=== PATIENT | female | born 1950 | race Caucasian/White ===

== ENCOUNTER 2018-07-01 16:37 | Emergency (ER) | payer MEDICAID, OTHER ==
[2018-07-01] MEDS ORDERED: Sodium Chloride 0.9% 2.5 ML Syringe FLUSH PRN (16:39)
[2018-07-01] MEDS ORDERED: Sodium Chloride 0.9% 10 ML Syringe FLUSH PRN (16:39)
--- NOTE | 2018-07-01 16:39 | EDM.PDOC ---
ED HPI GENERAL MEDICAL PROBLEM - General Stated Complaint: AMB Time Seen by Provider: 07/01/18 16:38 Source of Information: Reports: Patient, Family History Limitations: Reports: No Limitations - History of Present Illness INITIAL COMMENTS - FREE TEXT/NARRATIVE: History of present illness: []Patient Arrived to ED by EMS as a stroke code. Noted to be incontinent. Patient's granddaughter gives a history of yesterday she was feeling unwell complaints and then about an hour and half prior to arrival she told her that she was feeling worse and thought she had a recurrence of a UTI and was going to lay down. She then went into the bathroom and started dry heaving complaining that she could not open her eyes because she was so dizzy and then proceeded to pass out. Her daughter carried her back to the bedroom and later in the bed where she vomited 3-4 more times yellow fluid. Patient has a history of lupus, diabetes, frequent UTIs, CVA in the past, COPD, and is oxygen dependent at night. Review of systems: As per history of present illness and below otherwise all systems reviewed and negative. Past medical history: As per history of present illness and as reviewed below otherwise noncontributory. Surgical history: As per history of present illness and as reviewed below otherwise noncontributory. Social history: No reported history of drug or alcohol abuse. Family history: As per history of present illness and as reviewed below otherwise noncontributory. Physical exam: General: Well developed, well nourished in NAD HEENT: Atraumatic, normocephalic, pupils reactive, negative for conjunctival pallor or scleral icterus, mucous membranes moist, throat clear, neck supple, nontender, trachea midline. Lungs: Clear to auscultation, breath sounds equal bilaterally, chest nontender. Heart: S1S2, regular, negative for clicks, rubs, or JVD. Abdomen: NABS, Soft, nondistended, nontender. Negative for masses or hepatosplenomegaly. Negative for costovertebral tenderness. Pelvis: Stable nontender. Genitourinary: Deferred. Rectal: Deferred. Extremities: Atraumatic, negative for cords or calf pain. Neurovascular unremarkable. Neuro: Awake, alert,. Cranial nerves II through XII unremarkable. Cerebellum unremarkable. Motor and sensory unremarkable throughout. Exam nonfocal. Skin:warm and dry Diagnostics: CT was negative, CBC is elevated at 17,000 with a shift, chemistries negative, TSH normal, UA positive for UTI. Lactate negative Therapeutics: Patient was hydrated while in the ED with marked improvement in mental status ED Course: Improved Impression: UTI Prescriptions: Cipro, Reglan Plan: Increase fluids take meds as directed follow-up with primary care return if symptoms worsen or change. Definitive disposition and diagnosis as appropriate pending reevaluation and review of above. head Pain Score (Numeric/FACES): 3 - Related Data Allergies Allergy/AdvReac Type Severity Reaction Status Date / Time amoxicillin [From Augmentin] Allergy Other Verified 07/01/18 17:04 azithromycin Allergy Lethargy Verified 06/09/18 19:29 clavulanic acid Allergy Other Verified 07/01/18 17:04 [From Augmentin] Home Meds: Home Meds Clopidogrel [Plavix] 75 mg PO BEDTIME 04/11/18 [History] Escitalopram [Lexapro] 10 mg PO BEDTIME 04/11/18 [History] L.acidoph,Paracasei, B.lactis [Probiotic] 1 cap PO DAILY 04/11/18 [History] Magnesium Citrate 295 ml PO ONETIME #1 solution 04/11/18 [Rx] Omeprazole Magnesium [Prilosec] 20 mg PO DAILY #30 suspdr.pkt 04/11/18 [Rx] Pantoprazole [ProTONIX] 40 mg PO DAILY 04/11/18 [History] Pregabalin [Lyrica] 50 mg PO BEDTIME 04/11/18 [History] Tiotropium [Spiriva HandiHaler] 18 mcg INH DAILY 04/11/18 [History] atorvaSTATin [Lipitor] 10 mg PO DAILY 04/11/18 [History] traMADol [Ultram] 100 mg PO Q4H 04/11/18 [History] Nystatin [Nystatin Crm] 30 gm TOP BID #1 tube 06/11/18 [Rx] metFORMIN [Glucophage] 500 mg PO BIDMEALS 30 Days #60 tablet 06/11/18 [Rx] Ciprofloxacin HCl [Cipro] 500 mg PO BID #20 tablet 07/01/18 [Rx] Metoclopramide HCl [Reglan] 10 mg PO TID PRN #12 tablet 07/01/18 [Rx] Past Medical History HEENT History: Reports: None Cardiovascular History: Reports: High Cholesterol, Other (See Below) Other Cardiovascular History: Clogged Arteries Respiratory History: Reports: Bronchitis, Recurrent, COPD Gastrointestinal History: Reports: GERD, Other (See Below) Other Gastrointestinal History: hernia Genitourinary History: Reports: None [employer] History: Reports: Musculoskeletal History: Reports: None Neurological History: Reports: None Psychiatric History: Reports: Anxiety, Depression Endocrine/Metabolic History: Reports: None Hematologic History: Reports: None Immunologic History: Reports: None Oncologic (Cancer) History: Reports: None Dermatologic History: Reports: None - Infectious Disease History Infectious Disease History: Reports: Chicken Pox, Measles, Mumps - Past Surgical History GI Surgical History: Reports: Appendectomy, Cholecystectomy Social & Family History - Family History Family Medical History: Noncontributory - Caffeine Use Caffeine Use: Reports: Coffee ED ROS GENERAL - Review of Systems Review Of Systems: ROS reveals no pertinent complaints other than HPI. ED EXAM, NEURO - Physical Exam Exam: See Below (See history of present illness) Course - Vital Signs Last Recorded V/S: Last Vital Signs Temp 97.5 F 07/01/18 17:00 Pulse 104 H 07/01/18 18:45 Resp 18 07/01/18 18:45 BP 118/55 L 07/01/18 18:45 Pulse Ox 98 07/01/18 18:45 - Orders/Labs/Meds Orders: Active Orders 24 hr Category Date Time Status Assess Neurological Status [RC] ASDIRECTED Care 07/01/18 16:39 Active Bedrest [RC] ASDIRECTED Care 07/01/18 16:39 Active Cardiac Monitoring [RC] . DIRECTED Care 07/01/18 16:39 Active Communication Order [RC] STAT Care 07/01/18 18:08 Active EKG Documentation Completion [RC] STAT Care 07/01/18 16:39 Active Height and Weight [RC] UPON Care 07/01/18 16:39 Active Initiate Acute Stroke Protocol [RC] STAT Care 07/01/18 16:39 Active NIH Stroke Scale [RC] ASDIRECTED Care 07/01/18 16:39 Active Nursing Bedside Swallow Screen [RC] ASDIRECTED Care 07/01/18 16:39 Active Oxygen Therapy [RC] ASDIRECTED Care 07/01/18 16:39 Active Stroke Education, General [RC] Click to Edit Care 07/01/18 16:39 Active Vital Signs [RC] Q15M Care 07/01/18 16:39 Active Head wo Cont [CT] Stat Exams 07/01/18 16:39 Taken CULTURE BLOOD [BC] Stat Lab 07/01/18 17:40 Received CULTURE BLOOD [BC] Stat Lab 07/01/18 17:54 Received Sodium Chloride 0.9% [Saline Flush] Med 07/01/18 16:39 Active 10 ml FLUSH ASDIRECTED PRN Sodium Chloride 0.9% [Saline Flush] Med 07/01/18 16:39 Active 2.5 ml FLUSH ASDIRECTED PRN Blood Culture x2 Reflex Set [OM.PC] Stat Oth 07/01/18 17:26 Ordered Peripheral IV Insertion Adult [OM.PC] Stat Oth 07/01/18 16:39 Ordered Peripheral IV Insertion Adult [OM.PC] Stat Oth 07/01/18 16:39 Ordered Medication Orders Sodium Chloride (Saline Flush) 10 ml FLUSH ASDIRECTED PRN PRN Reason: Keep Vein Open Last Admin: 07/01/18 17:16 Dose: 10 ml Sodium Chloride (Saline Flush) 2.5 ml FLUSH ASDIRECTED PRN PRN Reason: Keep Vein Open Last Admin: 07/01/18 17:16 Dose: 2.5 ml Labs: Laboratory Tests 07/01/18 07/01/18 07/01/18 Range/Units 16:53 16:53 16:53 WBC 17.11 H (4.0-11.0) K/uL RBC 4.92 (4.30-5.90) M/uL Hgb 14.1 (12.0-16.0) g/dL Hct 40.8 (36.0-46.0) % MCV 82.9 (80.0-98.0) fL MCH 28.7 (27.0-32.0) pg MCHC 34.6 (31.0-37.0) g/dL RDW Std Deviation 43.0 (28.0-62.0) fl RDW Coeff of Nohelia 14 (11.0-15.0) % Plt Count 340 (150-400) K/uL MPV 9.90 (7.40-12.00) fL Neut % (Auto) 82.5 H (48.0-80.0) % Lymph % (Auto) 10.6 L (16.0-40.0) % [place] % (Auto) 5.8 (0.0-15.0) % Eos % (Auto) 0.9 (0.0-7.0) % Baso % (Auto) 0.2 (0.0-1.5) % Neut # (Auto) 14.1 H (1.4-5.7) K/uL Lymph # (Auto) 1.8 (0.6-2.4) K/uL [place] # (Auto) 1.0 H (0.0-0.8) K/uL Eos # (Auto) 0.2 (0.0-0.7) K/uL Baso # (Auto) 0.0 (0.0-0.1) K/uL Nucleated RBC % 0.0 /100WBC Nucleated RBCs # 0 K/uL INR 0.98 APTT 25.9 (18.6-31.3) SEC Lactate (0.20-2.00) mmol/L Sodium 135 L (136-145) mmol/L Potassium 4.1 (3.5-5.1) mmol/L Chloride 101 (98-107) mmol/L Carbon Dioxide 25.6 (21.0-32.0) mmol/L BUN 16 (7.0-18.0) mg/dL Creatinine 0.8 (0.6-1.0) mg/dL Est Cr Clr Drug Dosing 57.22 mL/min Estimated GFR (MDRD) > 60.0 ml/min Glucose 106 (74-106) mg/dL Calcium 9.7 (8.5-10.1) mg/dL Total Bilirubin 0.3 (0.2-1.0) mg/dL AST 18 (15-37) IU/L ALT 25 (14-63) IU/L Alkaline Phosphatase 90 (46-116) U/L Troponin I < 0.050 (0.000-0.056) ng/mL Total Protein 8.0 (6.4-8.2) g/dL Albumin 3.7 (3.4-5.0) g/dL Globulin 4.3 H (2.6-4.0) g/dL Albumin/Globulin Ratio 0.9 (0.9-1.6) TSH 3rd Generation 1.29 (0.36-3.74) uIU/mL Urine Color Urine Appearance Urine pH (5.0-8.0) Ur Specific [place] (1.001-1.035) Urine Protein (NEGATIVE) mg/dL Urine Glucose (UA) (NEGATIVE) mg/dL Urine Ketones (NEGATIVE) mg/dL Urine Occult Blood (NEGATIVE) Urine Nitrite (NEGATIVE) Urine Bilirubin (NEGATIVE) Urine Urobilinogen (<2.0) EU/dL Ur Leukocyte Esterase (NEGATIVE) Urine RBC (0-2/HPF) Urine WBC (0-5/HPF) Ur Epithelial Cells (NONE-FEW) Urine Bacteria (NEGATIVE) 07/01/18 07/01/18 Range/Units 17:40 18:22 WBC (4.0-11.0) K/uL RBC (4.30-5.90) M/uL Hgb (12.0-16.0) g/dL Hct (36.0-46.0) % MCV (80.0-98.0) fL MCH (27.0-32.0) pg MCHC (31.0-37.0) g/dL RDW Std Deviation (28.0-62.0) fl RDW Coeff of Nohelia (11.0-15.0) % Plt Count (150-400) K/uL MPV (7.40-12.00) fL Neut % (Auto) (48.0-80.0) % Lymph % (Auto) (16.0-40.0) % [place] % (Auto) (0.0-15.0) % Eos % (Auto) (0.0-7.0) % Baso % (Auto) (0.0-1.5) % Neut # (Auto) (1.4-5.7) K/uL Lymph # (Auto) (0.6-2.4) K/uL [place] # (Auto) (0.0-0.8) K/uL Eos # (Auto) (0.0-0.7) K/uL Baso # (Auto) (0.0-0.1) K/uL Nucleated RBC % /100WBC Nucleated RBCs # K/uL INR APTT (18.6-31.3) SEC Lactate 1.2 (0.20-2.00) mmol/L Sodium (136-145) mmol/L Potassium (3.5-5.1) mmol/L Chloride (98-107) mmol/L Carbon Dioxide (21.0-32.0) mmol/L BUN (7.0-18.0) mg/dL Creatinine (0.6-1.0) mg/dL Est Cr Clr Drug Dosing mL/min Estimated GFR (MDRD) ml/min Glucose (74-106) mg/dL Calcium (8.5-10.1) mg/dL Total Bilirubin (0.2-1.0) mg/dL AST (15-37) IU/L ALT (14-63) IU/L Alkaline Phosphatase (46-116) U/L Troponin I (0.000-0.056) ng/mL Total Protein (6.4-8.2) g/dL Albumin (3.4-5.0) g/dL Globulin (2.6-4.0) g/dL Albumin/Globulin Ratio (0.9-1.6) TSH 3rd Generation (0.36-3.74) uIU/mL Urine Color YELLOW Urine Appearance CLEAR Urine pH 5.5 (5.0-8.0) Ur Specific [place] 1.015 (1.001-1.035) Urine Protein NEGATIVE (NEGATIVE) mg/dL Urine Glucose (UA) NEGATIVE (NEGATIVE) mg/dL Urine Ketones NEGATIVE (NEGATIVE) mg/dL Urine Occult Blood SMALL H (NEGATIVE) Urine Nitrite POSITIVE H (NEGATIVE) Urine Bilirubin NEGATIVE (NEGATIVE) Urine Urobilinogen 0.2 (<2.0) EU/dL Ur Leukocyte Esterase TRACE H (NEGATIVE) Urine RBC 0-2 (0-2/HPF) Urine WBC 0-1 (0-5/HPF) Ur Epithelial Cells RARE (NONE-FEW) Urine Bacteria RARE (NEGATIVE) Meds: Medications Generic Name Dose Route Start Last Admin Trade Name Freq PRN Reason Stop Dose Admin Sodium Chloride 10 ml 07/01/18 16:39 07/01/18 17:16 Saline Flush FLUSH 10 ml ASDIRECTED PRN Administration Keep Vein Open Sodium Chloride 2.5 ml 07/01/18 16:39 07/01/18 17:16 Saline Flush FLUSH 2.5 ml ASDIRECTED PRN Administration Keep Vein Open Discontinued Medications Generic Name Dose Route Start Last Admin Trade Name Freq PRN Reason Stop Dose Admin Sodium Chloride 1,000 mls @ 999 mls/hr 07/01/18 16:51 07/01/18 17:16 Normal Saline IV 07/01/18 17:51 999 mls/hr .Bolus ONE Administration Metoclopramide HCl 10 mg 07/01/18 19:00 Reglan IV 07/01/18 19:01 ONETIME ONE Ondansetron HCl 4 mg 07/01/18 16:51 07/01/18 17:16 Zofran IVPUSH 07/01/18 16:52 4 mg ONETIME ONE Administration Departure - Departure Time of Disposition: 19:08 Disposition: Home, Self-Care 01 Condition: Good Clinical Impression: UTI (urinary tract infection) Qualifiers: Urinary tract infection type: acute cystitis Hematuria presence: with hematuria Qualified Code(s): N30.01 - Acute cystitis with hematuria - Discharge Information *PRESCRIPTION DRUG MONITORING PROGRAM REVIEWED*: No *COPY OF PRESCRIPTION DRUG MONITORING REPORT IN PATIENT LORENZA: No Prescriptions: Ciprofloxacin HCl [Cipro] 500 mg PO BID #20 tablet Metoclopramide HCl [Reglan] 10 mg PO TID PRN #12 tablet PRN Reason: Nausea Referrals: PCP,None [Primary Care Provider] - Additional Instructions: The following information is given to patients seen in the emergency department who are being discharged to home. This information is to outline your options for follow-up care. We provide all patients seen in our emergency department with a follow-up referral. The need for follow-up, as well as the timing and circumstances, are variable depending upon the specifics of your emergency department visit. If you don't have a primary care physician on staff, we will provide you with a referral. We always advise you to contact your personal physician following an emergency department visit to inform them of the circumstance of the visit and for follow-up with them and/or the need for any referrals to a consulting specialist. The emergency department will also refer you to a specialist when appropriate. This referral assures that you have the opportunity for follow-up care with a specialist. All of these measure are taken in an effort to provide you with optimal care, which includes your follow-up. Under all circumstances we always encourage you to contact your private physician who remains a resource for coordinating your care. When calling for follow-up care, please make the office aware that this follow-up is from your recent emergency room visit. If for any reason you are refused follow-up, please contact the [facility] Emergency Department at and asked to speak to the emergency department charge nurse. Take Cipro as directed until completed, drink lots of fluids, use Reglan for nausea and vomiting. Follow-up with primary care or return to ER if symptoms worsen or change. [facility] [address] [place] [id number] - My Orders Last 24 Hours: My Active Orders 07/01/18 16:39 Assess Neurological Status [RC] ASDIRECTED Bedrest [RC] ASDIRECTED Cardiac Monitoring [RC] . DIRECTED EKG Documentation Completion [RC] STAT Height and Weight [RC] UPON Initiate Acute Stroke Protocol [RC] STAT NIH Stroke Scale [RC] ASDIRECTED Nursing Bedside Swallow Screen [RC] ASDIRECTED Oxygen Therapy [RC] ASDIRECTED Stroke Education, General [RC] Click to Edit Vital Signs [RC] Q15M Head wo Cont [CT] Stat Sodium Chloride 0.9% [Saline Flush] 10 ml FLUSH ASDIRECTED PRN Sodium Chloride 0.9% [Saline Flush] 2.5 ml FLUSH ASDIRECTED PRN Peripheral IV Insertion Adult [OM.PC] Stat Peripheral IV Insertion Adult [OM.PC] Stat 07/01/18 17:26 Blood Culture x2 Reflex Set [OM.PC] Stat 07/01/18 17:40 CULTURE BLOOD [BC] Stat 07/01/18 17:54 CULTURE BLOOD [BC] Stat 07/01/18 18:08 Communication Order [RC] STAT - Assessment/Plan Last 24 Hours: My Active Orders 07/01/18 16:39 Assess Neurological Status [RC] ASDIRECTED Bedrest [RC] ASDIRECTED Cardiac Monitoring [RC] . DIRECTED EKG Documentation Completion [RC] STAT Height and Weight [RC] UPON Initiate Acute Stroke Protocol [RC] STAT NIH Stroke Scale [RC] ASDIRECTED Nursing Bedside Swallow Screen [RC] ASDIRECTED Oxygen Therapy [RC] ASDIRECTED Stroke Education, General [RC] Click to Edit Vital Signs [RC] Q15M Head wo Cont [CT] Stat Sodium Chloride 0.9% [Saline Flush] 10 ml FLUSH ASDIRECTED PRN Sodium Chloride 0.9% [Saline Flush] 2.5 ml FLUSH ASDIRECTED PRN Peripheral IV Insertion Adult [OM.PC] Stat Peripheral IV Insertion Adult [OM.PC] Stat 07/01/18 17:26 Blood Culture x2 Reflex Set [OM.PC] Stat 07/01/18 17:40 CULTURE BLOOD [BC] Stat 07/01/18 17:54 CULTURE BLOOD [BC] Stat 07/01/18 18:08 Communication Order [RC] STAT
[2018-07-01] MEDS ORDERED: Ondansetron 4 MG/2 ML SDV IVPUSH ONE (16:51)
[2018-07-01] MEDS ORDERED: Sodium Chloride 0.9% 1,000 ML IV ONE (16:51)
[2018-07-01 17:35] LABS: CHLORIDE,CL 101 mmol/L (98-107); SODIUM,NA 135 mmol/L (136-145)
[2018-07-01] MEDS ORDERED: Metoclopramide 10 MG/2 ML SDV IV ONE (19:00)
--- NOTE | 2018-07-02 18:39 | CT ---
EXAM DATE: 07/01/18 PATIENT'S AGE: 68 Patient: BIGG ALCALA Facility: [place], [place] Site . Site : [id number] Study: CT Head STROKE PROTOCOL [id number]/10/2019 4:47:49 PM Ordering Physician: Doctor Palumbo Final Report: INDICATION: Stroke code TECHNIQUE: CT head without contrast. COMPARISON: 06/09/2018 FINDINGS: The ventricles and sulci are stable. There is no mass effect or midline shift. There is no loss of terrell-white differentiation. There is no evidence of an acute intracranial hemorrhage. No acute calvarial fracture is seen. There is mucosal thickening and debris in the left maxillary sinus. There is apparent partial opacification of few left mastoid tip air cells versus volume averaging. The visualized orbits are within normal limits. IMPRESSION: No evidence of an acute intracranial hemorrhage, mass effect or loss of terrell- white differentiation. Left maxillary sinus disease. The findings were communicated to Dr. Garcia on 07/01/18 at 4:59 p.m.. Dictated by Chava Espino MD @ 07/01/2018 4:59:27 PM Please note that all CT scans at this facility use dose modulation, iterative reconstruction, and/or weight-based dosing when appropriate to reduce radiation dose to as low as reasonably achievable. Dictated by: Chava Espino MD @ 07/01/2018 17:00:35 (Electronic Signature) Report Signed by Proxy. [facility]
== END 2018-07-01 19:42 | disposition home or self-care (01) ==
LOC: MW.ED 16:37
DX: N30.01 Acute cystitis with hematuria (principal); E11.9 Type 2 diabetes mellitus without complications; F41.9 Anxiety disorder, unspecified; F32.9 Major depressive disorder, single episode, unspecified; Z90.49 Acquired absence of other specified parts of digestive tract; Z88.1 Allergy status to other antibiotic agents; Z79.899 Other long term (current) drug therapy; Z79.84 Long term (current) use of oral hypoglycemic drugs; Z86.73 Personal history of transient ischemic attack (TIA), and cerebral infarction without residual deficits
CPT/HCPCS: 36415; 70450; 80053; 81001; 83605; 84443; 84484; 85025; 85610; 85730; 87040; 93005; J2405; J2765; J7040